=== PATIENT | female | born 1995 | race Two or more races ===

== ENCOUNTER 2025-01-10 13:02 | Emergency (ER) | payer OTHER ==
[~2025-01-10] VITALS: Ht 157.5 cm; Wt 63.5 kg
[2025-01-10] MEDS ORDERED: LABETALOL HCL100 MG PO (13:11)
[2025-01-10] MEDS ORDERED: NIFEDIPINE 20 MG CAPSULE PO STA (15:26)
[2025-01-10] MEDS ORDERED: ACETAMINOPHEN 500 MG GEL..CAP PO ONE (15:36)
[2025-01-10 15:58] LABS: HEMATOCRIT 37.7 % (36.0-45.00); HEMOGLOBIN 12.5 g/dL (12.0-15.00); MEAN CELL VOLUME 86.2 fL (80.00-100.00); MEAN CORPUSCULAR HEMOGLOBIN 28.7 pg (27.00-32.0); MEAN CORPUSCULAR HGB CONC 33.3 g/dl (32.0-36.0); PLATELET COUNT 209 K/uL (150-450); RED BLOOD COUNT 4.37 M/uL (4.00-6.00); RED CELL DISTRIBUTION WIDTH 13.4 % (11.5-14.5)
[2025-01-10 16:14] LABS: CALCIUM 9.3 mg/dL (8.5-10.1); POTASSIUM 4.49 mEq/L (3.5-5.1)
[2025-01-10 16:16] LABS: GFR 122.27
[2025-01-10 16:17] LABS: CREATININE SERUM 0.59 mg/dL (0.55-1.02)
[2025-01-10 17:09] LABS: PH,URINE 5.5 (5.0-8.0); URINE APPEARANCE Clear; URINE BILIRRUBIN Negative (NEGATIVE); URINE BLOOD Negative; URINE COLOR Yellow; URINE GLUCOSE Negative (NEGATIVE); URINE KETONE Trace (NEGATIVE); URINE LEUKOCYTE Trace; URINE NITRATE Negative; URINE PROTEIN Negative (NEGATIVE)
[2025-01-10 17:13] LABS: URINE BACTERIA 5924.1 uL (0.0-1933); URINE CAST 1.47 uL (0.0-1.40); URINE EPITHELIAL CELLS 28.6 uL (0.0-38.8); URINE RBC 4.5 uL (0.0-20.8); URINE WBC 98.6 uL (0.0-23.2)
[2025-01-10] MEDS ORDERED: AMOX1TAB5 PO (17:38)
[2025-01-10] MEDS ORDERED: PEPCID AC20 MG PO (17:38)
== END 2025-01-10 18:05 | disposition home or self-care (01) ==
LOC: ER 13:02
PROVIDERS: General Practice
DX: O10.911 Unspecified pre-existing hypertension complicating pregnancy, first trimester (principal); Z3A.12 12 weeks gestation of pregnancy

== ENCOUNTER → 2025-01-21 09:15 | Outpatient (CLI) | payer OTHER ==
[~2025-01-21 09:15] MED LIST: AMOX1TAB5 PO; LABETALOL HCL100 MG PO; PEPCID AC20 MG PO
== END | disposition home or self-care (01) ==
LOC: PRENATAL 09:15
PROVIDERS: ATTEND Obstetrics & Gynecology Maternal & Fetal Medicine
DX: O36.80X0 Pregnancy with inconclusive fetal viability, not applicable or unspecified (principal); Z36.82 Encounter for antenatal screening for nuchal translucency; Z14.8 Genetic carrier of other disease; O10.019 Pre-existing essential hypertension complicating pregnancy, unspecified trimester; Z3A.13 13 weeks gestation of pregnancy

== ENCOUNTER 2025-03-11 21:12 | Emergency (ER) | payer OTHER ==
[~2025-03-11] VITALS: Ht 167.6 cm; Wt 81.6 kg
[2025-03-11] MEDS ORDERED: 0.9 % SODIUM CHLORIDE 1,000 ML IV STA (21:38)
[2025-03-11] MEDS ORDERED: 0.9 % SODIUM CHLORIDE 1,000 ML IV SCH (22:30)
[2025-03-11 23:10] LABS: BASO % 0.3 % (0.1-1.2); EOS # 0.08 (0.04-0.54); EOS % 0.7 % (0.7-7.0); HEMATOCRIT 36.3 % (34.1-44.9); HEMOGLOBIN 12.2 g/dL (11.2-15.7); LYMPH % 18.5 % (19.3-53.1); MEAN CORPUSCULAR HEMOGLOBIN 28.3 pg (25.6-32.2); MONO # 0.84 (0.24-0.82); MONO % 7.8 % (4.7-12.5); NEUT # 7.82 (1.56-6.13); NEUT % 72.1 % (34.0-71.1); PLATELET COUNT 192 K/uL (163-369); RED BLOOD COUNT 4.31 M/uL (3.93-5.22); RED CELL DISTRIBUTION WIDTH 12.5 % (11.6-14.4)
[2025-03-11 23:29] LABS: CALCIUM 9.4 mg/dL (8.5-10.1); CREATININE SERUM 0.52 mg/dL (0.55-1.02); GFR 141.45; POTASSIUM 3.7 mEq/L (3.5-5.1)
[2025-03-12 00:19] LABS: PH,URINE 5.5 (5.0-8.0); URINE APPEARANCE Clear; URINE BILIRRUBIN Negative (NEGATIVE); URINE BLOOD Negative; URINE COLOR Yellow; URINE GLUCOSE Negative (NEGATIVE); URINE KETONE Negative (NEGATIVE); URINE LEUKOCYTE Negative; URINE NITRATE Negative; URINE PROTEIN Negative (NEGATIVE); URINE UROBILINOGEN 0.2 E.U./dl
[2025-03-12 00:22] LABS: URINE BACTERIA 318.1 uL (0.0-1933); URINE EPITHELIAL CELLS 1.5 uL (0.0-38.8); URINE WBC 4.4 uL (0.0-23.2)
[2025-03-12 00:44] LABS: URINE RBC 1.3 uL (0.0-20.8)
[2025-03-12] MEDS ORDERED: ACETAMINOPHEN 500 MG GEL..CAP PO STA (03:39)
[2025-03-12] MEDS ORDERED: ACETAMINOPHEN 500 MG GEL..CAP PO ONE (03:44)
[2025-03-12] MEDS ORDERED: ACETAMINOPHEN500 M2 PO (05:41)
== END 2025-03-12 05:51 ==
LOC: ER 21:29
PROVIDERS: Emergency Medicine
DX: O26.892 Other specified pregnancy related conditions, second trimester (principal); R10.2 Pelvic and perineal pain; O34.12 Maternal care for benign tumor of corpus uteri, second trimester; D25.9 Leiomyoma of uterus, unspecified; O10.912 Unspecified pre-existing hypertension complicating pregnancy, second trimester; Z3A.19 19 weeks gestation of pregnancy

== ENCOUNTER 2025-03-14 08:24 | Outpatient (CLI) | payer OTHER ==
[~2025-03-14 08:24] MED LIST changes: +ACETAMINOPHEN500 M2 PO
== END 2025-03-14 08:25 | disposition home or self-care (01) ==
LOC: PRENATAL 08:24
PROVIDERS: ATTEND Obstetrics & Gynecology Maternal & Fetal Medicine
DX: O44.00 Complete placenta previa NOS or without hemorrhage, unspecified trimester (principal); O10.019 Pre-existing essential hypertension complicating pregnancy, unspecified trimester; O34.10 Maternal care for benign tumor of corpus uteri, unspecified trimester; Z3A.20 20 weeks gestation of pregnancy

== ENCOUNTER 2025-05-13 09:29 | Outpatient (CLI) | payer OTHER | END 2025-05-13 09:33 | disposition home or self-care (01) | LOC: PRENATAL 09:29 | PROVIDERS: ATTEND Obstetrics & Gynecology Maternal & Fetal Medicine | DX: O26.849 Uterine size-date discrepancy, unspecified trimester (principal); O10.019 Pre-existing essential hypertension complicating pregnancy, unspecified trimester; O34.10 Maternal care for benign tumor of corpus uteri, unspecified trimester; Z3A.29 29 weeks gestation of pregnancy ==

== ENCOUNTER 2025-06-23 08:54 | Outpatient (CLI) | payer OTHER | END 2025-06-23 08:55 | disposition home or self-care (01) | LOC: PRENATAL 08:54 | PROVIDERS: ATTEND Obstetrics & Gynecology Maternal & Fetal Medicine | DX: O26.849 Uterine size-date discrepancy, unspecified trimester (principal); O36.8130 Decreased fetal movements, third trimester, not applicable or unspecified; O10.019 Pre-existing essential hypertension complicating pregnancy, unspecified trimester; O34.10 Maternal care for benign tumor of corpus uteri, unspecified trimester; Z3A.34 34 weeks gestation of pregnancy ==

== ENCOUNTER 2025-06-30 13:27 | Outpatient (CLI) | payer OTHER ==
[~2025-06-30] VITALS: Ht 167.6 cm; Wt 96.2 kg
[2025-06-30 14:09] VITALS: BP 130/84
[2025-06-30] MEDS ORDERED: RINGERS SOLUTION,LACTATED 1,000 ML IV SCH (14:30)
[2025-06-30] MEDS ORDERED: CHILDREN'S ASPI81 MG PO (15:02)
[2025-06-30] MEDS ORDERED: PRENATA CHEWAB1 EACH (15:02)
[2025-06-30 15:23] VITALS: BP 128/80; O2SAT 100
[2025-06-30 15:54] LABS: BASO % 0.4 % (0.1-1.2); EOS # 0.03 (0.04-0.54); EOS % 0.4 % (0.7-7.0); LYMPH # 1.50 (1.18-3.74); LYMPH % 17.6 % (19.3-53.1); MEAN PLATELET VOLUME 13.50 fl (9.4-12.4); MONO # 0.88 (0.24-0.82); MONO % 10.3 % (4.7-12.5); NEUT # 6.04 (1.56-6.13); NEUT % 70.6 % (34.0-71.1); RED CELL DISTRIBUTION WIDTH 13.5 % (11.6-14.4)
[2025-06-30 15:55] LABS: URINE APPEARANCE Cloudy; URINE BILIRRUBIN Negative (NEGATIVE); URINE BLOOD Negative; URINE COLOR Dark Yellow; URINE GLUCOSE Negative (NEGATIVE); URINE KETONE Trace (NEGATIVE); URINE LEUKOCYTE Trace; URINE NITRATE Negative; URINE PROTEIN 30 (NEGATIVE); URINE UROBILINOGEN 1.0 E.U./dl
[2025-06-30 15:58] LABS: URINE CAST 1.61 uL (0.0-1.40); URINE EPITHELIAL CELLS 36.6 uL (0.0-38.8); URINE RBC 10.2 uL (0.0-20.8); URINE WBC 155.6 uL (0.0-23.2)
[2025-06-30 16:25] LABS: TYPE CELLS RENAL TUBULAR; URINE BACTERIA > 9821.5 uL (0.0-1933); URINE CRYSTALS FEW /HPF
[2025-06-30 18:42] VITALS: BP 100/62; BP 120/78
== END 2025-06-30 18:22 | disposition home or self-care (01) ==
LOC: OBS/DEL 13:27
PROVIDERS: ATTEND Obstetrics & Gynecology
DX: O36.8330 Maternal care for abnormalities of the fetal heart rate or rhythm, third trimester, not applicable or unspecified (principal); Z3A.35 35 weeks gestation of pregnancy

== ENCOUNTER 2025-07-22 09:11 | Inpatient (IN) | payer OTHER ==
[~2025-07-22] VITALS: Ht 167.6 cm; Wt 98.4 kg
[~2025-07-22 09:11] MED LIST changes: +CHILDREN'S ASPI81 MG PO; +PRENATA CHEWAB1 EACH
[2025-07-22 10:43] VITALS: BP 141/92
[2025-07-22] MEDS ORDERED: MISOPROSTOL 25 MCG/4 ML GEL.W.APPL VAG ONE ×3 (11:00→20:30)
[2025-07-22 11:35] LABS: URINE APPEARANCE Cloudy; URINE BACTERIA 6910.8 uL (0.0-1933); URINE BILIRRUBIN Negative (NEGATIVE); URINE BLOOD Negative; URINE COLOR Yellow; URINE EPITHELIAL CELLS 29.0 uL (0.0-38.8); URINE GLUCOSE Negative (NEGATIVE); URINE KETONE Negative (NEGATIVE); URINE LEUKOCYTE Small; URINE NITRATE Negative; URINE PROTEIN Trace (NEGATIVE); URINE RBC 4.5 uL (0.0-20.8); URINE UROBILINOGEN 0.2 E.U./dl; URINE WBC 72.9 uL (0.0-23.2)
[2025-07-22] MEDS ORDERED: RINGERS SOLUTION,LACTATED 1,000 ML IV SCH (11:45)
[2025-07-22 11:47] LABS: BASO % 0.4 % (0.1-1.2); EOS # 0.03 (0.04-0.54); EOS % 0.3 % (0.7-7.0); LYMPH # 1.58 (1.18-3.74); LYMPH % 16.7 % (19.3-53.1); MEAN PLATELET VOLUME 14.00 fl (9.4-12.4); MONO # 0.74 (0.24-0.82); MONO % 7.8 % (4.7-12.5); NEUT # 7.01 (1.56-6.13); NEUT % 74.4 % (34.0-71.1); RED CELL DISTRIBUTION WIDTH 14.4 % (11.6-14.4)
[2025-07-22 11:58] LABS: URINE CAST 0.14 uL (0.0-1.40)
[2025-07-22 12:22] LABS: INR 0.94
[2025-07-22 12:49] LABS: ALT/SGPT 13.0 U/L (12-78); AST/SGOT 17.0 U/L (15-37); BILIRUBIN TOTAL 0.57 mg/dL (0.3-1.2); BUN CREA RATIO 18.0 (7.0-25.0); CREATININE SERUM 0.55 mg/dL (0.55-1.02); GFR 131.61; GLOBULINA 4.1 G/DL (2.4-3.5); GLUCOSE FASTING 74.0 mg/dL (65-100); LDH 201.0 U/L (84-246); OSMOLALITY SERUM 273.0 MOSM/KG (275-295)
[2025-07-22 15:17] VITALS: BP 134/61
[2025-07-22 19:56] VITALS: BP 132/81
[2025-07-22 23:52] VITALS: BP 146/72
[2025-07-23] MEDS ORDERED: MORPHINE SULFATE 4 MG/ML CARTRIDGE IV ONE ×3 (02:30→12:45)
[2025-07-23 04:17] VITALS: BP 144/82
[2025-07-23 07:45] VITALS: BP 144/84
[2025-07-23 08:25] VITALS: BP 146/98
[2025-07-23 11:12] VITALS: BP 137/80
[2025-07-23] MEDS ORDERED: OXYTOCIN 500 ML IV SCH (12:45)
[2025-07-23 12:53] VITALS: BP 146/90
[2025-07-23 15:45] VITALS: BP 148/92
[2025-07-23] MEDS ORDERED: OXYTOCIN 10 UNITS/ML VIAL ONE (18:37)
[2025-07-23] MEDS ORDERED: ERYTHROMYCIN BASE OPHT 1GM EACH TUBE OP ONE (18:38)
[2025-07-23] MEDS ORDERED: CEFAZOLIN SODIUM 1,000 MG VIAL IV ONE (19:15)
[2025-07-23] MEDS ORDERED: CEFAZOLIN SODIUM 1,000 MG VIAL ONE (19:46)
[2025-07-23] MEDS ORDERED: OXYTOCIN 1,000 ML IV SCH (21:15)
[2025-07-23] MEDS ORDERED: PROMETHAZINE HCL 25 MG/ML AMPUL IV PRN (21:15)
[2025-07-23] MEDS ORDERED: KETOROLAC TROMETHAMINE 30 MG VIAL IV PRN (21:15)
[2025-07-23] MEDS ORDERED: MORPHINE SULFATE 4 MG/ML CARTRIDGE IV PRN (21:15)
[2025-07-23] MEDS ORDERED: LABETALOL HCL 100 MG/20 ML ML ONE (23:44)
[2025-07-24 01:58] LABS: BASO % 0.1 % (0.1-1.2); EOS # 0.00 (0.04-0.54); EOS % 0.0 % (0.7-7.0); LYMPH # 1.20 (1.18-3.74); LYMPH % 6.5 % (19.3-53.1); MEAN PLATELET VOLUME 14.20 fl (9.4-12.4); MONO # 1.59 (0.24-0.82); MONO % 8.7 % (4.7-12.5); NEUT # 15.41 (1.56-6.13); NEUT % 84.0 % (34.0-71.1); RED CELL DISTRIBUTION WIDTH 14.5 % (11.6-14.4)
[2025-07-24 02:00] VITALS: BP 132/94
[2025-07-24] MEDS ORDERED: LABETALOL HCL 100 MG/20 ML ML IV PUSH ONE (06:30)
[2025-07-24 08:48] VITALS: BP 147/80
[2025-07-24] MEDS ORDERED: SIMETHICONE 125 MG CAPSULE PO SCH (09:00)
[2025-07-24] MEDS ORDERED: DOCUSATE SODIUM 100MG CAP PO SCH (09:00)
[2025-07-24] MEDS ORDERED: IRON/V.C/V.B12/FOLIC A/VIT. E 1 CAPL CAPLET PO SCH (17:00)
[2025-07-24] MEDS ORDERED: LABETALOL HCL 100 MG TABLET PO SCH (17:00)
[2025-07-24 18:37] VITALS: BP 134/79
[2025-07-25 00:34] VITALS: BP 130/80
[2025-07-25 08:00] VITALS: BP 132/81
[2025-07-25 18:05] VITALS: BP 138/85
== END 2025-07-25 18:25 | disposition home or self-care (01) | DRG 788 ==
LOC: LDR 09:11 → OB/GYN 07-23 21:42
PROVIDERS: Student in an Organized Health Care Education/Training Program; ADMIT Obstetrics & Gynecology; ATTEND Obstetrics & Gynecology
PROC: 3E0P7VZ Introduction of Hormone into Female Reproductive, Via Natural or Artificial Opening (ICD-10-PCS; 2025-07-22)
PROC: 4A1HXCZ Monitoring of Products of Conception, Cardiac Rate, External Approach (ICD-10-PCS; 2025-07-22)
PROC: 3E033VJ Introduction of Other Hormone into Peripheral Vein, Percutaneous Approach (ICD-10-PCS; 2025-07-23)
PROC: 10D00Z1 Extraction of Products of Conception, Low, Open Approach (ICD-10-PCS; principal; 2025-07-24)
DX: O10.92 Unspecified pre-existing hypertension complicating childbirth (principal); O62.1 Secondary uterine inertia; Z3A.38 38 weeks gestation of pregnancy; Z37.0 Single live birth